=== PATIENT | female | born 1965 | race Caucasian/White ===

== ENCOUNTER 2020-12-11 13:18 | Emergency (ER) | payer OTHER ==
[2020-12-11 13:43] VITALS: BP 135/78; PULSE 72; TEMP 97.8; BMI 24.9
[2020-12-11] MEDS ORDERED: TETRACAINE 0.5% OPHTH SOLN 2 ML BOTTLE ONE (14:31)
[2020-12-11] MEDS ORDERED: TETRACAINE 0.5% HCL 0.6ML DROPPER.BOTTLE OS ONE (14:31)
[2020-12-11] MEDS ORDERED: FLUORESCEIN NA 1 EA STRIP OS ONE (14:31)
[2020-12-11] MEDS ORDERED: FLUORESCEIN NA 1 EA STRIP ONE (14:32)
[2020-12-11 15:35] LABS: HEMATOCRIT 36.2 % (32.4-45.2); MCH 30.8 pg (25.7-33.7); MCHC 33.1 g/dl (32.0-36.0); MEAN CELL VOLUME 92.9 fl (80-96); MEAN PLT VOLUME 7.5 fl (7.5-11.1); PLATELET COUNT 299 K/MM3 (134-434); RDW 15.5 % (11.6-15.6); WHITE BLOOD COUNT 8.9 K/mm3 (4.0-10.8)
[2020-12-11 15:48] LABS: CALCIUM 8.5 mg/dl (8.5-10); CREATININE 0.8 mg/dl (0.55-1.3)
[2020-12-11] MEDS ORDERED: CLINDAMYCIN HCL 150 MG CAPSULE (FP) PO ONE (17:43)
[2020-12-11] MEDS ORDERED: CLINDAMYCIN HCL 150 MG CAPSULE (FP) ONE (17:53)
== END 2020-12-11 18:19 | disposition home or self-care (01) ==
LOC: FER 13:18
DX: L03.213 Periorbital cellulitis (principal); H04.003 Unspecified dacryoadenitis, bilateral lacrimal glands
CPT/HCPCS: 36415; 70481-TC; 80048; 85027; 99283-25; C1887; Q9967